=== PATIENT | female | born 1945 | race Caucasian/White ===

== ENCOUNTER → 2017-07-06 | Outpatient (CLI) | payer OTHER, MEDICARE ==
[2017-07-06 13:21] LABS: BASO % 0.4 %; BASO ABS # 0.02 K/uL (0-0.2); EOS % 2.1 %; EOS ABS # 0.11 K/uL (0-0.5); HEMATOCRIT 39.2 % (37-47); HEMOGLOBIN 12.9 g/dL (12.0-16.0); IG# 0.01 K/uL (0.00-0.02); LYMPH % 26.3 %; LYMPH ABS # 1.36 K/uL (1.2-3.4); MEAN CELL VOLUME 87.3 fL (80-100); MEAN CORPUSCULAR HEMOGLOBIN 28.7 pg (25-34); MEAN CORPUSCULAR HGB CONC 32.9 g/dl (32-36); MEAN PLATELET VOLUME 10.3 fL (7.4-10.4); MONO % 7.3 %; MONO ABS # 0.38 K/uL (0.11-0.59); NEUT % 63.7 %; PLATELET COUNT 270 K/uL (130-400); RED CELL DISTRIBUTION WIDTH CV 14.5 % (11.5-14.5); RED CELL DISTRIBUTION WIDTH SD 46.3 fL (36.4-46.3); WHITE BLOOD COUNT 5.18 K/uL (4.8-10.8)
[2017-07-06 13:53] LABS: HEMOGLOBIN A1C 5.7 % (4.5-5.6)
[2017-07-06 14:38] LABS: ALBUMIN 3.5 gm/dl (3.4-5.0); ALT/SGPT 28 U/L (12-78); BLOOD UREA NITROGEN 15 mg/dl (7-18); CALCIUM 9.3 mg/dl (8.5-10.1); CARBON DIOXIDE 27 mmol/L (21-32); CHOLESTEROL 293 mg/dl (0-200); CREATININE 0.68 mg/dl (0.60-1.20); GLUCOSE 100 mg/dl (70-99); POTASSIUM 4.2 mmol/L (3.5-5.1); SODIUM 139 mmol/L (136-145)
[2017-07-06 14:41] LABS: ALKALINE PHOSPHATASE 56 U/L (45-117); AST/SGOT 28 U/L (15-37); LDL CHOLESTEROL CALCULATED 209 mg/dl; TOTAL PROTEIN 6.8 gm/dl (6.4-8.2)
== END | disposition home or self-care (01) ==
LOC: C.LABBC 10:12
PROVIDERS: ATTEND Internal Medicine
DX: R73.03 Prediabetes (principal); H65.20 Chronic serous otitis media, unspecified ear

== ENCOUNTER → 2017-07-29 | Outpatient (CLI) | payer OTHER ==
--- NOTE | 2017-07-29 14:11 | DIAGNOSTIC IMAGING REPORT ---
MRI OF THE BRAIN WITHOUT CONTRAST CLINICAL HISTORY: Benign meningioma. Dizziness. Nausea. COMPARISON STUDY: MRI of the brain April 05, 2010 and July 11, 2014. TECHNIQUE: Utilizing a 1.5 Zoë magnet and dedicated coil, multiplanar, multiecho imaging of the brain was performed without IV contrast. FINDINGS: No restricted diffusion is noted. No acute intracranial hemorrhage is present. Ventricular system is stable. Basilar cisterns are patent. There are no extra axial fluid collections. A 1.8 x 1.4 cm extra-axial lesion within the right superior aspect of the posterior fossa is similar to exam of July 11, 2014. This has minimally increase in size since MRI of February 19, 2012. No additional intracranial masses are present. Scattered white matter T2 hyperintense foci suggest mild small vessel disease. Calvarial signal is maintained. Small amount of fluid is noted within the bilateral mastoid air cells which is diminished when compared to exam of July 11, 2014. Flow-voids for the major intracranial vessels are present. IMPRESSION: 1. No significant change in the 1.8 x 1.4 cm posterior fossa meningioma since MRI of July 11, 2014. Minimal increase in size since exam of February 19, 2012. 2. No acute intracranial findings. Electronically signed by: Vinnie Min M.D. 07/29/2017 2:09 PM Dictated Date/Time: 07/29/2017 2:04 PM
== END | disposition home or self-care (01) ==
LOC: C.MRIBC 12:49
PROVIDERS: ATTEND Internal Medicine
DX: D32.0 Benign neoplasm of cerebral meninges (principal)